=== PATIENT | female | born 1985 | race American Indian/Alaskan Native ===

== ENCOUNTER 2019-03-24 16:18 | Emergency (ER) | payer SELFPAY ==
[2019-03-24 17:42] VITALS: BP 126/61
--- NOTE | 2019-03-24 17:44 | Event Note ---
ED Screening Note ED Screening Note: This initial assessment/diagnostic orders/clinical plan/treatment(s) is/are subject to change based on patients health status, clinical progression and re- assessment by fellow clinical providers in the ED. Further treatment and workup at subsequent clinical providers discretion. Patient/guardian urged not to elope from the ED as their condition may be serious if not clinically assessed and managed. Initial orders include: 33yo BF states that she has significant back pain x 2 days with no injury or trauma. She states that she woke up and noticed stiffness and great pain.
--- NOTE | 2019-03-24 20:39 | Emergency Department Report ---
ED Back Pain/Injury HPI - General Chief Complaint: Back Pain/Injury Stated Complaint: LOWER BACK PAIN Time Seen by Provider: 03/24/19 20:31 Source: patient Limitations: No Limitations - History of Present Illness Initial Comments: 33-year-old female presents to ED with left back pain 2 days. Patient reports history of lower back pain in the past. Patient states the pain that she is currently experiencing is same as it has been previously. Denies any radiation of pain, denies numbness or weakness in the extremity, denies fever, denies urinary or bowel incontinence or retention. MD Complaint: back pain -: days(s) (2) Similar Symptoms Previously: Yes Radiation: none Severity: moderate Quality: sharp Consistency: intermittent Improves With: immobilization Worsens With: movement Context: unknown Associated Symptoms: denies: numbness, difficulty urinating, incontinence, fever/chills, abdominal pain - Related Data Previous Rx's Medication Instructions Recorded Last Taken Type Acetaminophen/Codeine [Tylenol #3] 1 tab PO Q6H PRN #20 tab 02/25/15 Unknown Rx Ibuprofen [Motrin] 600 mg PO Q8H PRN #40 tablet 02/25/15 Unknown Rx Metaxalone [Skelaxin] 800 mg PO TID #30 tablet 02/25/15 Unknown Rx Cyclobenzaprine [Flexeril] 10 mg PO TID PRN #15 tablet 03/24/19 Unknown Rx Naproxen [Naprosyn] 500 mg PO BID #20 tablet 03/24/19 Unknown Rx predniSONE [Deltasone] 50 mg PO QDAY #5 tab 03/24/19 Unknown Rx traMADol [Ultram] 50 mg PO Q6HR PRN #7 tablet 03/24/19 Unknown Rx Allergies Allergy/AdvReac Type Severity Reaction Status Date / Time No Known Allergies Allergy Verified 03/24/19 16:35 ED Review of Systems ROS: Stated complaint: LOWER BACK PAIN Other details as noted in HPI Comment: All other systems reviewed and negative Constitutional: denies: chills, fever Gastrointestinal: denies: abdominal pain Genitourinary: other (denies urinary incontinence or retention) Musculoskeletal: back pain Neurological: denies: weakness, numbness, paresthesias ED Past Medical Hx - Past Medical History Previous Medical History?: No - Surgical History Past Surgical History?: No - Social History Smoking Status: Never Smoker Substance Use Type: Alcohol, Marijuana - Medications Home Medications: Home Medications Medication Instructions Recorded Confirmed Last Taken Type Acetaminophen/Codeine [Tylenol #3] 1 tab PO Q6H PRN #20 tab 02/25/15 Unknown Rx Ibuprofen [Motrin] 600 mg PO Q8H PRN #40 tablet 02/25/15 Unknown Rx Metaxalone [Skelaxin] 800 mg PO TID #30 tablet 02/25/15 Unknown Rx Cyclobenzaprine [Flexeril] 10 mg PO TID PRN #15 tablet 03/24/19 Unknown Rx Naproxen [Naprosyn] 500 mg PO BID #20 tablet 03/24/19 Unknown Rx predniSONE [Deltasone] 50 mg PO QDAY #5 tab 03/24/19 Unknown Rx traMADol [Ultram] 50 mg PO Q6HR PRN #7 tablet 03/24/19 Unknown Rx ED Physical Exam - General Limitations: No Limitations General appearance: alert, in no apparent distress - Head Head exam: Present: atraumatic, normocephalic - Eye Eye exam: Present: normal appearance, PERRL, EOMI - ENT ENT exam: Present: mucous membranes moist - Neck Neck exam: Present: normal inspection - Respiratory Respiratory exam: Present: normal lung sounds bilaterally. Absent: respiratory distress - Cardiovascular Cardiovascular Exam: Present: regular rate, normal rhythm - GI/Abdominal GI/Abdominal exam: Absent: distended - Extremities Exam Extremities exam: Present: normal inspection, full ROM - Back Exam Back exam: Present: paraspinal tenderness (left lower lumbar), other (tenderness in left sciatic notch) - Neurological Exam Neurological exam: Present: alert, oriented X3, CN II-XII intact. Absent: motor sensory deficit - Psychiatric Psychiatric exam: Present: normal affect, normal mood - Skin Skin exam: Present: warm, dry, intact, normal color ED Course Vital Signs 03/24/19 17:40 Temperature 98.3 F Pulse Rate 71 Respiratory 18 Rate Blood Pressure 126/61 [Right] O2 Sat by Pulse 99 Oximetry ED Medical Decision Making - Medical Decision Making 33-year-old female with recurrent low back pain. No signs of cauda equina. Patient is ambulatory with normal gait. Vitals are normal. Prescriptions given. Outpatient follow-up advised. Return precautions given. - Differential Diagnosis lumbar strain, herniated disc Critical care attestation.: If time is entered above; I have spent that time in minutes in the direct care of this critically ill patient, excluding procedure time. ED Disposition Clinical Impression: Acute lumbar myofascial strain Disposition: TO HOME OR SELFCARE Is pt being admited?: No Condition: Stable Instructions: Muscle Strain (ED) Prescriptions: predniSONE [Deltasone] 50 mg PO QDAY #5 tab Cyclobenzaprine [Flexeril] 10 mg PO TID PRN #15 tablet PRN Reason: Muscle Spasm Naproxen [Naprosyn] 500 mg PO BID #20 tablet traMADol [Ultram] 50 mg PO Q6HR PRN #7 tablet PRN Reason: Pain Referrals: PRIMARY CAREMD [Primary Care Provider] - 3-5 Days MONA SILVERIO MD [Staff Physician] - 3-5 Days [facility] [Provider Group] - 3-5 Days Forms: Work/School Release Form(ED) Time of Disposition: 20:43
== END 2019-03-24 21:30 | disposition home or self-care (01) ==
LOC: ED 16:18
DX: S39.012A Strain of muscle, fascia and tendon of lower back, initial encounter (principal); F12.10 Cannabis abuse, uncomplicated; Z79.899 Other long term (current) drug therapy; X58.XXXA Exposure to other specified factors, initial encounter; Y93.89 Activity, other specified; Y92.89 Other specified places as the place of occurrence of the external cause; Y99.8 Other external cause status